=== PATIENT | male | born 1965 | race Caucasian/White ===

== ENCOUNTER → 2019-04-19 | Day surgery (SDC) | payer SELFPAY ==
[~2019-04-19] MED LIST: PROPOFOL 200 MG/20 ML VIAL ONE
--- NOTE | 2019-04-19 10:01 | RAD ---
SUPINE ABDOMEN: INDICATION: Foreign body. FINDINGS/IMPRESSION: There is a radiopaque foreign body seen overlying the upper abdomen just to the right of midline poss ibly within the gastric antral region. Bowel gas pattern unremarkable. POS: OFF
--- NOTE | 2019-04-19 15:42 | OP ---
DATE OF PROCEDURE: 04/19/2019 PREPROCEDURE DIAGNOSIS: Ingestion of dental bridge inadvertently last night around 1 a.m. X-ray at around 7:30 this morning showing it to possibly be in the antrum or duodenal bulb. PROCEDURE PERFORMED: Diagnostic esophagogastroduodenoscopy. POSTPROCEDURE DIAGNOSES: 1. No foreign body encountered in the stomach, esophagus, or duodenum to the third portion. 2. No evidence of trauma to the esophagus or stomach or duodenum. 3. Mild gastritis, antrum. RECOMMENDATIONS: 1. Discontinue tobacco use. 2. Prilosec p.r.n. 3. Strain stool for passage of dental bridge. 4. High-fiber diet. 5. If the patient develops abdominal pain over the next several days, he is recommended to return to the emergency room. 6. If the patient does not see bridge pass within the next five days, he should follow up with primary physician for abdominal films looking for the bridge. ANESTHESIA: TIVA. PROCEDURE IN DETAIL: After the patient was informed of the risks, benefits, and possible complications of endoscopy including perforation, bleeding, reaction to medication, and aspiration, informed consent was obtained. The patient was brought to endoscopy suite, where he was sedated in gradual fashion. Before the procedure, I did inform him, there was a very good likelihood that the bridge had passed beyond the stomach or proximal small intestine, where we could retrieve it endoscopically based on the time that has elapsed. He could not go into the operating room at 7:30 this morning as two emergency surgery cases were going at the time. The timing of this procedure was as earliest as we could get to the OR based on OR staffing and time. The endoscope was advanced through the esophagus, stomach, and the second and third portions of the duodenum. The patient's esophagus appeared normal except for mild reflux change. The stomach was normal in forward and retroflexed views and were fully distended. No foreign bodies were seen. This was evaluated twice, taking care to look at the cardia and fundus very well. The duodenal bulb, second and third portions were all normal. The fourth portion could be seen in the distance and no foreign bodies were seen in there. The scope was removed. The patient tolerated the procedure well and there were no complications. Job ID: [id number]
--- NOTE | 2019-04-20 08:22 | CON ---
DATE OF CONSULTATION: 04/19/2019 HISTORY OF PRESENT ILLNESS: I was asked to see Mr. Howard by Dr. Camelia Ayala with regard to inadvertent ingestion of his dental bridge. He reports after watching football game last night around 1 in the morning, he was eating pizza and after he ate, he noticed his dental bridge was missing. It was pretty sure he swallowed it. That was about 1 in the morning. He came to the emergency room at 7 this morning. He had an x-ray that showed it to be probably in the antrum of the stomach. Drinking a fair amount of alcohol last night, but notes he has not had anything to eat or drink since 1:00 a.m. He denies any throat pain or breathing difficulties or abdominal pain. He did drink some water after that incident. X-ray in the emergency room revealed that looks like it is in the antrum of the stomach. PAST MEDICAL HISTORY: Hypertension and diabetes. PAST SURGICAL HISTORY: Negative. SOCIAL HISTORY: He drinks alcohol. Denies drug use. Uses tobacco. He smokes about a pack per day. He has some tobacco about 3 cans per week of snuff. ALLERGIES: NONE KNOWN. MEDICATIONS: Metformin. REVIEW OF SYSTEMS: Negative for shortness of breath, hemoptysis, throat pain, dysphagia, odynophagia, chest pain. He has some vague upper abdominal discomfort, nonlocalized. He has no swelling or edema. He has no history of difficulty with anesthesia. PHYSICAL EXAMINATION: VITAL SIGNS: Blood pressure 145/85, pulse 101, temperature , respirations 18. GENERAL: He is resting comfortably in bed. He is a little bit heavy. He has no distress. He is alert and oriented to person, place, time. NECK: No stridor. Neck is nontender. LUNGS: Clear. HEART: Regular rhythm. ABDOMEN: Soft and nontender. There is no rebound. There is no guarding. There is no palpable hepatosplenomegaly. LABORATORY DATA: He had normal CBC in December. X-ray films reviewed show what appears to be a radiopaque foreign body in the stomach in the antrum region consistent with a dental bridge. Film time is dated 737. ASSESSMENT: Inadvertent ingestion of dental bridge. No evidence of oropharynx or respiratory damage or symptoms. X-ray shows this to be probably in the antrum of the stomach. This is early as we could get into the operating room. We will recommend attempted removal endoscopically, but I have informed him there is a very good chance that this has moved out of the stomach and into the intestine, and if that has, we cannot reach it and will be instructed to have high-fiber diet and watch his stools. If he would have developed abdominal pain, he would have to return to the hospital. Otherwise, if he does not see this bridge pass, he will need to follow up with his regular physician for x-rays in 1 week. Risks, benefits, possible complications of endoscopy, perforation, bleeding, reaction to medication, aspiration, injury to the stomach or esophagus from the foreign body. All discussed with the patient. He understands these and wished to proceed. Job ID: [id number]
== END ==
LOC: ERS 07:07 → SDC 09:47
PROVIDERS: ATTEND Internal Medicine Gastroenterology
PROC: 0DJ08ZZ Inspection of Upper Intestinal Tract, Via Natural or Artificial Opening Endoscopic (ICD-10-PCS; principal; 2019-04-19)
DX: T18.9XXA Foreign body of alimentary tract, part unspecified, initial encounter (principal); K29.70 Gastritis, unspecified, without bleeding; I10 Essential (primary) hypertension; E11.9 Type 2 diabetes mellitus without complications; F17.210 Nicotine dependence, cigarettes, uncomplicated; F17.220 Nicotine dependence, chewing tobacco, uncomplicated; Z79.84 Long term (current) use of oral hypoglycemic drugs
CPT/HCPCS: 36416; 74018; J2704; J3490

== ENCOUNTER 2022-04-27 06:13 | Inpatient (IN) | payer OTHER, SELFPAY ==
[2022-04-27 06:33] LABS: #Basophils 0.1 thou/uL (0.0-0.2); #Eosinphils 0.1 thou/uL (0.0-0.7); #Lymphocytes 2.8 thou/uL (1.20-3.40); #Monocytes 0.5 thou/uL (0.11-0.59); #Neutrophils 5.3 thou/uL (1.40-6.50); %Basophils 0.8 % (0.0-1.0); %Eosinophils 1.7 % (0.0-10.0); %Lymphocytes 31.7 % (21.0-51.0); %Monocytes 5.9 % (0.0-10.0); %Neutrophils 59.9 % (42.0-75.0); Hemoglobin 17.2 g/dL (14.0-18.0); Mean Corpuscular HGB CONC 34.2 g/dL (32.0-36.0); Mean Corpuscular Hemoglobin 31.4 pg (27.0-31.0); Mean Corpuscular Volume 91.9 fl (78.0-98.0); Mean Platelet Volume 7.1 fL (7.4-10.4); Platelet Count 201 10x3/uL (130-400); RBC Distribution Width 12.1 % (11.5-14.5); Red Blood Cell (RBC) Count 5.49 mill/uL (4.70-6.10); White Blood Cell (WBC) Count 8.8 10x3/uL (4.8-10.8)
[2022-04-27 07:03] LABS: ALT (SGPT) 18 U/L (8-55); AST (SGOT) 15 U/L (5-34); Albumin 3.7 g/dL (3.5-5.0); Alkaline Phosphatase 127 U/L (40-110); Anion Gap 12 mmol/L (10-20); BUN (Urea Nitrogen) 11 mg/dL (8.4-25.7); Bilirubin, Total 0.3 mg/dL (0.2-1.2); Calc. Creatinine Clearance 0 mL/min (70-130); Calcium 9.2 mg/dL (7.8-10.44); Carbon Dioxide 25 mmol/L (22-29); Chloride 102 mmol/L (98-107); Estimated GFR 81; Globulin 3.5 g/dL (2.4-3.5); Glucose 340 mg/dL (70-105); Protein, Total 7.2 g/dL (6.0-8.3); Sodium 135 mmol/L (136-145)
[2022-04-27 07:33] LABS: CKMB 7.9 ng/mL (0-6.6)
[2022-04-27] MEDS ORDERED: Nitroglycerin 0.4 MG TAB 1 EACH ONE (08:04)
[2022-04-27] MEDS ORDERED: Enoxaparin Sodium 100 MG/ML SYRINGE ONE (08:15)
[2022-04-27] MEDS ORDERED: Enoxaparin Sodium 30 MG/0.3 ML SYRINGE ONE (08:15)
[2022-04-27] MEDS ORDERED: Nitroglycerin 0.4 MG TAB (25 Tab Bottle) SL PRN (08:18)
[2022-04-27] MEDS ORDERED: HYDROcodone/Acetaminophen 5/325 mg Tablet PO PRN ×2 (08:22)
[2022-04-27] MEDS ORDERED: Acetaminophen 325 MG TAB PO PRN (08:22)
[2022-04-27] MEDS ORDERED: Ondansetron PF 4 MG/2 ML Vial IVP PRN (08:22)
[2022-04-27] MEDS ORDERED: Bisacodyl 5 MG TAB PO PRN (08:22)
[2022-04-27] MEDS ORDERED: Dextrose 50% Abboject 50 ML SYRINGE SLOW IVP PRN (08:27)
[2022-04-27] MEDS ORDERED: Dextrose 5% in Water 1,000 ML IV PRN (08:27)
[2022-04-27] MEDS ORDERED: Nicotine 21 MG PATCH TD SCH (09:00)
[2022-04-27] MEDS: Aspirin 81 mg Enteric Coated Tablet PO SCH (09:42)
[2022-04-27 09:50] VITALS: BMI 40.6
[2022-04-27 10:03] LABS: Troponin I 0.941 ng/mL (< 0.028)
[2022-04-27 13:16] LABS: Troponin I 1.716 ng/mL (< 0.028)
[2022-04-27] MEDS ORDERED: Communication Order-Pharmacy FS ONE (17:03)
[2022-04-27 17:40] LABS: Platelet Count 211 10x3/uL (130-400)
[2022-04-27] MEDS: HumaLOG 300 UNITS/3 ML VIAL SC PRN (18:24)
[2022-04-27] MEDS: Enoxaparin Sodium 100 MG/ML SYRINGE SC SCH (21:36)
[2022-04-27] MEDS: Enoxaparin Sodium 30 MG/0.3 ML SYRINGE SC SCH (21:37)
[2022-04-27] MEDS: Nitroglycerin 2% Ointment 1 INCH/1 GM Packet TOP SCH (21:37)
[2022-04-27] MEDS: Metoprolol Tartrate 25 MG TAB PO SCH (21:37)
[2022-04-28 04:37] LABS: #Basophils 0.1 thou/uL (0.0-0.2); #Eosinphils 0.1 thou/uL (0.0-0.7); #Lymphocytes 3.1 thou/uL (1.20-3.40); #Monocytes 0.6 thou/uL (0.11-0.59); #Neutrophils 5.2 thou/uL (1.40-6.50); %Basophils 0.7 % (0.0-1.0); %Eosinophils 0.9 % (0.0-10.0); %Lymphocytes 34.2 % (21.0-51.0); %Monocytes 7.1 % (0.0-10.0); %Neutrophils 57.2 % (42.0-75.0); Hemoglobin 17.6 g/dL (14.0-18.0); Mean Corpuscular HGB CONC 32.5 g/dL (32.0-36.0); Mean Corpuscular Hemoglobin 30.3 pg (27.0-31.0); Mean Platelet Volume 7.2 fL (7.4-10.4); Platelet Count 210 10x3/uL (130-400); RBC Distribution Width 12.2 % (11.5-14.5)
[2022-04-28 04:56] LABS: Anion Gap 11 mmol/L (10-20); BUN (Urea Nitrogen) 10 mg/dL (8.4-25.7); Calc. Creatinine Clearance 151 mL/min (70-130); Calcium 9.6 mg/dL (7.8-10.44); Carbon Dioxide 27 mmol/L (22-29); Cardiac Risk 5.2 (Less than 4.5); Chloride 102 mmol/L (98-107); Cholesterol 232 mg/dl (< 200 Desired); Estimated GFR 86; Glucose 247 mg/dL (70-105); HDL Cholesterol 45 mg/dL (>60 Neg Risk); LDL Cholesterol, Calculated 158 mg/dL; Potassium 4.3 mmol/L (3.5-5.1); Sodium 136 mmol/L (136-145); Triglycerides 147 mg/dL (Less than 150)
[2022-04-28] MEDS: HumaLOG 300 UNITS/3 ML VIAL SC PRN ×2 (07:45→16:32)
[2022-04-28] MEDS: Nitroglycerin 2% Ointment 1 INCH/1 GM Packet TOP SCH ×2 (10:35→21:41)
[2022-04-28] MEDS: Metoprolol Tartrate 25 MG TAB PO SCH ×2 (10:35→21:42)
[2022-04-28] MEDS: Aspirin 81 mg Enteric Coated Tablet PO SCH (10:35)
[2022-04-28] MEDS: Enoxaparin Sodium 30 MG/0.3 ML SYRINGE SC SCH ×2 (10:36→21:40)
[2022-04-28] MEDS: Enoxaparin Sodium 100 MG/ML SYRINGE SC SCH ×2 (10:36→21:41)
[2022-04-28] MEDS ORDERED: Labetalol HCl 100 MG/20 ML VIAL SLOW IVP PRN (18:11)
[2022-04-28] MEDS ORDERED: Insulin Regular 300 UNITS/3 ML VIAL SC PRN (18:12)
[2022-04-28] MEDS ORDERED: HumaLOG 300 UNITS/3 ML VIAL SC PRN (18:13)
[2022-04-28] MEDS ORDERED: Polyethylene Glycol 3350 17 GM Packet PO PRN (19:40)
[2022-04-28] MEDS ORDERED: Insulin Glargine 30 UNITS/0.3 ML VIAL SC SCH (21:00)
[2022-04-28] MEDS: Senokot S 8.6-50 MG TAB PO SCH (21:52)
[2022-04-29] MEDS ORDERED: glyBURIDE 5 MG TAB PO SCH (09:00)
[2022-04-29] MEDS: Metoprolol Tartrate 25 MG TAB PO SCH ×2 (09:36→20:45)
[2022-04-29] MEDS: Aspirin 81 mg Enteric Coated Tablet PO SCH (09:36)
[2022-04-29] MEDS: Nitroglycerin 2% Ointment 1 INCH/1 GM Packet TOP SCH ×2 (09:36→20:46)
[2022-04-29] MEDS: Senokot S 8.6-50 MG TAB PO SCH ×3 (09:36→20:51)
[2022-04-29] MEDS: Enoxaparin Sodium 30 MG/0.3 ML SYRINGE SC SCH (09:36)
[2022-04-29] MEDS: Enoxaparin Sodium 100 MG/ML SYRINGE SC SCH (09:50)
[2022-04-29 12:12] LABS: #Basophils 0.1 thou/uL (0.0-0.2); #Eosinphils 0.1 thou/uL (0.0-0.7); #Lymphocytes 2.6 thou/uL (1.20-3.40); #Monocytes 0.5 thou/uL (0.11-0.59); #Neutrophils 4.3 thou/uL (1.40-6.50); %Basophils 0.8 % (0.0-1.0); %Lymphocytes 34.7 % (21.0-51.0); %Monocytes 6.4 % (0.0-10.0); Hemoglobin 18.4 g/dL (14.0-18.0); Mean Corpuscular HGB CONC 33.7 g/dL (32.0-36.0); Mean Corpuscular Hemoglobin 31.3 pg (27.0-31.0); Mean Corpuscular Volume 92.8 fl (78.0-98.0); Platelet Count 195 10x3/uL (130-400); Red Blood Cell (RBC) Count 5.88 mill/uL (4.70-6.10); White Blood Cell (WBC) Count 7.5 10x3/uL (4.8-10.8)
[2022-04-29] MEDS: HumaLOG 300 UNITS/3 ML VIAL SC PRN ×2 (12:17→18:08)
[2022-04-29 12:26] LABS: Hemoglobin A1c 8.9 % (4.0-6.0)
[2022-04-29 12:33] LABS: Anion Gap 9 mmol/L (10-20); BUN (Urea Nitrogen) 11 mg/dL (8.4-25.7); Calc. Creatinine Clearance 164 mL/min (70-130); Calcium 9.4 mg/dL (7.8-10.44); Carbon Dioxide 27 mmol/L (22-29); Chloride 101 mmol/L (98-107); Estimated GFR 95; Glucose 238 mg/dL (70-105); Sodium 133 mmol/L (136-145)
[2022-04-29] MEDS ORDERED: Insulin Glargine 30 UNITS/0.3 ML VIAL SC SCH (21:00)
[2022-04-30] MEDS ORDERED: Heparin 10,000 UNITS/ 10 ML VIAL ONE ×2 (08:44→09:30)
[2022-04-30] MEDS ORDERED: Lidocaine 1% (PF) 30 ML VIAL ONE (08:44)
[2022-04-30] MEDS ORDERED: Midazolam HCl 2 mg/2 ml Vial ONE (09:18)
[2022-04-30] MEDS ORDERED: FENTANYL 50 MCG/ML 1 ML VIAL ONE (09:18)
[2022-04-30] MEDS ORDERED: Nitroglycerin 100MG/250ML BOT 250 ML ONE (09:57)
[2022-04-30] MEDS ORDERED: Clopidogrel Bisulfate 300 MG TAB ONE ×2 (10:01→10:02)
[2022-04-30] MEDS ORDERED: Sodium Chloride 0.9% 1,000 ML IV SCH (11:00)
[2022-04-30] MEDS ORDERED: Ondansetron PF 4 MG/2 ML Vial ONE (11:15)
[2022-04-30] MEDS ORDERED: Iopamidol 370 76% 100 ML VIAL ONE (13:14)
[2022-04-30] MEDS: Senokot S 8.6-50 MG TAB PO SCH ×2 (14:55→21:02)
[2022-04-30] MEDS: Aspirin 81 mg Enteric Coated Tablet PO SCH (14:55)
[2022-04-30] MEDS: Metoprolol Tartrate 25 MG TAB PO SCH ×2 (14:55→21:02)
[2022-04-30] MEDS: Nitroglycerin 2% Ointment 1 INCH/1 GM Packet TOP SCH (15:27)
[2022-04-30] MEDS ORDERED: FLU VACC QS2022-23(6MOS UP)/PF 60 MCG/0.5 ML SYRINGE IM ONE (16:30)
[2022-04-30] MEDS: HumaLOG 300 UNITS/3 ML VIAL SC PRN (17:53)
[2022-04-30] MEDS ORDERED: Insulin Glargine 30 UNITS/0.3 ML VIAL SC SCH (21:00)
[2022-05-01 04:52] LABS: #Eosinphils 0.1 thou/uL (0.0-0.7); #Lymphocytes 2.7 thou/uL (1.20-3.40); #Monocytes 0.5 thou/uL (0.11-0.59); #Neutrophils 4.5 thou/uL (1.40-6.50); %Basophils 0.2 % (0.0-1.0); %Eosinophils 1.3 % (0.0-10.0); %Lymphocytes 34.7 % (21.0-51.0); %Monocytes 6.1 % (0.0-10.0); %Neutrophils 57.7 % (42.0-75.0); Hemoglobin 17.6 g/dL (14.0-18.0); Mean Corpuscular HGB CONC 33.1 g/dL (32.0-36.0); Mean Corpuscular Hemoglobin 30.2 pg (27.0-31.0); Mean Corpuscular Volume 91.2 fl (78.0-98.0); Mean Platelet Volume 7.1 fL (7.4-10.4); Platelet Count 210 10x3/uL (130-400); Red Blood Cell (RBC) Count 5.84 mill/uL (4.70-6.10); White Blood Cell (WBC) Count 7.7 10x3/uL (4.8-10.8)
[2022-05-01 05:21] LABS: ALT (SGPT) 78 U/L (8-55); AST (SGOT) 57 U/L (5-34); Albumin 3.8 g/dL (3.5-5.0); Alkaline Phosphatase 111 U/L (40-110); Anion Gap 13 mmol/L (10-20); BUN (Urea Nitrogen) 11 mg/dL (8.4-25.7); Bilirubin, Total 0.9 mg/dL (0.2-1.2); Calc. Creatinine Clearance 164 mL/min (70-130); Calcium 9.4 mg/dL (7.8-10.44); Carbon Dioxide 23 mmol/L (22-29); Chloride 104 mmol/L (98-107); Estimated GFR 95; Globulin 3.8 g/dL (2.4-3.5); Glucose 156 mg/dL (70-105); Potassium 4.3 mmol/L (3.5-5.1); Protein, Total 7.6 g/dL (6.0-8.3); Sodium 136 mmol/L (136-145)
[2022-05-01] MEDS: HumaLOG 300 UNITS/3 ML VIAL SC PRN (05:43)
[2022-05-01] MEDS ORDERED: glyBURIDE 5 MG TAB PO SCH (08:00)
[2022-05-01 08:05] VITALS: BP 123/69; TEMP 97.6
[2022-05-01] MEDS: Aspirin 81 mg Enteric Coated Tablet PO SCH (08:15)
[2022-05-01] MEDS ORDERED: Clopidogrel Bisulfate 75 MG TAB PO SCH (09:00)
[2022-05-01] MEDS: Senokot S 8.6-50 MG TAB PO SCH ×2 (11:08→11:09)
== END 2022-05-01 14:18 | disposition home or self-care (01) | DRG 247 ==
LOC: ERS 06:13 → ERHOLD 07:43 → 2NO 14:38
PROVIDERS: ADMIT Internal Medicine; ATTEND Internal Medicine
PROC: 027034Z Dilation of Coronary Artery, One Artery with Drug-eluting Intraluminal Device, Percutaneous Approach (ICD-10-PCS; principal; 2022-04-30)
PROC: 4A023N7 Measurement of Cardiac Sampling and Pressure, Left Heart, Percutaneous Approach (ICD-10-PCS; 2022-04-30)
PROC: B2111ZZ Fluoroscopy of Multiple Coronary Arteries using Low Osmolar Contrast (ICD-10-PCS; 2022-04-30)
PROC: B2151ZZ Fluoroscopy of Left Heart using Low Osmolar Contrast (ICD-10-PCS; 2022-04-30)
DX: I21.4 Non-ST elevation (NSTEMI) myocardial infarction (principal); Z68.41 Body mass index [BMI] 40.0-44.9, adult; E11.9 Type 2 diabetes mellitus without complications; I10 Essential (primary) hypertension; F17.210 Nicotine dependence, cigarettes, uncomplicated; E78.00 Pure hypercholesterolemia, unspecified; E66.01 Morbid (severe) obesity due to excess calories; G47.30 Sleep apnea, unspecified; Z20.822 Contact with and (suspected) exposure to COVID-19; Z88.8 Allergy status to other drugs, medicaments and biological substances; Z80.9 Family history of malignant neoplasm, unspecified
CPT/HCPCS: 36415; 36416; 71045; 80048; 80053; 80061; 82553; 83036; 83735; 84484; 85025; 85347; 92928; 93005; 93010; 93306; 93458; 96372; 97139; 99152; 99153; C1725; C1769; C1874; C9600; J1644; J1650; J1815; J2001; J2250; J2405; J3010; J7050; Q9967; U0003; U0005